=== PATIENT | male | born 1965 | race Caucasian/White ===

== ENCOUNTER 2025-05-21 17:49 | Emergency (ER) | payer BC ==
[~2025-05-21] VITALS: Ht 175.2 cm; Wt 86.2 kg
[2025-05-21 18:06] VITALS: BP 133/87
[2025-05-21] MEDS ORDERED: Tdap Vaccine 0.5 ML SYR (Adult Vaccine) IM ONE (19:00)
[2025-05-21] MEDS ORDERED: Lidocaine Hydrochloride 30 ML VIAL SC ONE (20:10)
[2025-05-21] MEDS ORDERED: CEPHALEXIN500 M1 PO (21:55)
[2025-05-21] MEDS ORDERED: CEPHALEXIN 500 MG CAP PO ONE (22:00)
== END 2025-05-21 22:12 | disposition home or self-care (01) ==
LOC: ED 17:49
DX: S61.412A Laceration without foreign body of left hand, initial encounter (principal); Z98.890 Other specified postprocedural states; Z90.49 Acquired absence of other specified parts of digestive tract; W45.8XXA Other foreign body or object entering through skin, initial encounter; Y93.89 Activity, other specified; Y92.89 Other specified places as the place of occurrence of the external cause; Y99.8 Other external cause status